=== PATIENT | female | born 1955 | race Caucasian/White ===

== ENCOUNTER 2018-05-13 11:51 | Inpatient (IN) | payer MEDICARE, BC ==
[~2018-05-13] VITALS: Ht 167.6 cm; Wt 86.4 kg
[~2018-05-13 11:51] MED LIST: BACITRACIN 50,000 UNIT ONE; BUPIVACAINE/PF-EPI 0.5% 1:200K ONE; THROMBIN 5,000 UNIT VIAL TP ONE
[2018-05-13] MEDS ORDERED: LACTATED RINGERS 1,000 ML IV SCH (12:29)
[2018-05-13] MEDS: GABAPENTIN 300 MG CAPSULE PO ONE ×2 (12:30→12:52)
[2018-05-13] MEDS ORDERED: OXYcodone IR 5MG TABLET PO ONE (12:30)
[2018-05-13] MEDS ORDERED: LIDOCAINE-MPF 1%, 2ML INFIL ONE (12:30)
[2018-05-13] MEDS ORDERED: ACETAMINOPHEN 500 MG TABLET PO ONE (12:30)
[2018-05-13] MEDS ORDERED: FENTANYL PF 250 MCG/5ML ONE (12:36)
[2018-05-13] MEDS ORDERED: synthroid PO (12:39)
[2018-05-13] MEDS ORDERED: vit d PO (12:39)
[2018-05-13] MEDS ORDERED: PRAV10TA2 PO (12:39)
[2018-05-13] MEDS ORDERED: LISI-167 PO (12:39)
[2018-05-13] MEDS ORDERED: METF1000 PO (12:39)
[2018-05-13] MEDS ORDERED: HYDR-3245 PO (12:39)
[2018-05-13] MEDS ORDERED: prempro PO (12:39)
[2018-05-13] MEDS ORDERED: DULO60CA7 PO (12:39)
[2018-05-13 12:53] VITALS: BP 155/70
[2018-05-13] MEDS ORDERED: FENTANYL PF 100 MCG/2ML IV PRN (14:00)
[2018-05-13] MEDS ORDERED: PROCHLORPERAZINE 5 MG/ML, 2ML IV PRN (14:00)
[2018-05-13] MEDS ORDERED: hydrALAzine 20 MG/ML, 1ML IV PRN (14:00)
[2018-05-13] MEDS ORDERED: PROMETHAZINE 25 MG/ML, 1ML IV PRN (14:00)
[2018-05-13] MEDS ORDERED: DIPHENHYDRAMINE 50 MG/ML, 1ML IVPush PRN (14:00)
[2018-05-13] MEDS ORDERED: LABETALOL 5MG/ML, 20ML IV PRN ×2 (14:00→17:00)
[2018-05-13] MEDS ORDERED: OXYcodone 5 MG/5 ML ORAL.SOL UDC PO PRN (14:00)
[2018-05-13] MEDS ORDERED: MEPERIDINE/PF 25MG/0.5ML IVPush PRN (14:00)
[2018-05-13] MEDS ORDERED: ONDANSETRON 2MG/ML, 2ML ONE (14:28)
[2018-05-13] MEDS ORDERED: NEOSTIGMINE 1 MG/ML, 10ML ONE (14:28)
[2018-05-13] MEDS ORDERED: SUCCINYLCHOLINE 20 MG/ML, 10ML ONE (14:28)
[2018-05-13] MEDS ORDERED: DEXAMETHASONE 4 MG/ML, 1ML ONE (14:28)
[2018-05-13] MEDS ORDERED: ROCURONIUM 10MG/ML,5ML ONE (14:28)
[2018-05-13] MEDS ORDERED: CEFAZOLIN 1,000 MG ONE (14:28)
[2018-05-13] MEDS ORDERED: GLYCOPYRROLATE 0.2MG/1ML, 5ML ONE (14:28)
[2018-05-13] MEDS ORDERED: PROPOFOL 10 MG/ML, 20ML ONE (14:28)
[2018-05-13] MEDS ORDERED: HYDROmorphone 2 MG/ML, 1ML ONE ×2 (14:44→15:47)
[2018-05-13] MEDS ORDERED: MEPERIDINE/PF 50 MG/ML ONE (14:44)
[2018-05-13] MEDS ORDERED: OXYcodone 5 MG/5 ML ORAL.SOL UDC ONE (14:45)
[2018-05-13] MEDS: HYDROmorphone 1 MG/ML, 1ML IV PRN ×6 (14:53→16:00)
[2018-05-13] MEDS ORDERED: PROMETHAZINE 25 MG/ML, 1ML ONE (14:59)
[2018-05-13] MEDS ORDERED: LORazepam 2 MG/ML, 1ML ONE (14:59)
[2018-05-13] MEDS ORDERED: LORazepam 2 MG/ML, 1ML IVPush PRN (15:30)
[2018-05-13] MEDS ORDERED: BISACODYL 10 MG SUPP PR PRN (17:00)
[2018-05-13] MEDS ORDERED: MAGNESIUM HYDROXIDE 8%, 30ML UDC PO PRN (17:00)
[2018-05-13] MEDS ORDERED: CYCLOBENZAPRINE 10 MG TABLET PO PRN (17:00)
[2018-05-13] MEDS ORDERED: HYDROcodone/APAP 5/325 TABLET PO PRN (17:00)
[2018-05-13] MEDS ORDERED: ONDANSETRON 2MG/ML, 2ML IV PRN (17:00)
[2018-05-13] MEDS ORDERED: HYDROmorphone 2MG TABLET PO PRN (17:00)
[2018-05-13] MEDS ORDERED: HYDROmorphone 2 MG/ML, 1ML IM PRN (17:00)
[2018-05-13] MEDS: metFORMIN 500 MG TABLET PO SCH ×2 (18:32→20:06)
[2018-05-13] MEDS: NS + 20MEQ KCL 1,000 ML IV SCH (18:32)
[2018-05-13 19:15] VITALS: BP 122/61
[2018-05-13] MEDS: HYDROcodone/APAP 10/325 MG TABLET PO PRN (20:04)
[2018-05-13] MEDS ORDERED: PRAVASTATIN 20 MG TABLET PO SCH (21:00)
[2018-05-13] MEDS: CEFAZOLIN PMX 1GM/50ML 50 ML IVPB SCH (21:58)
[2018-05-13] MEDS: INSULIN REGULAR 100 UNITS/ML, 3ML VIAL SQ-INSULIN SCH (22:47)
[2018-05-14 00:20] VITALS: BP 108/63
[2018-05-14] MEDS: HYDROcodone/APAP 10/325 MG TABLET PO PRN ×3 (00:21→08:47)
[2018-05-14 04:11] VITALS: BP 108/55
[2018-05-14] MEDS ORDERED: LEVOTHYROXINE 150 MCG TABLET PO SCH (06:00)
[2018-05-14] MEDS: CEFAZOLIN PMX 1GM/50ML 50 ML IVPB SCH (06:18)
[2018-05-14] MEDS: NS + 20MEQ KCL 1,000 ML IV SCH (06:20)
[2018-05-14] MEDS: INSULIN REGULAR 100 UNITS/ML, 3ML VIAL SQ-INSULIN SCH ×2 (07:00→10:56)
[2018-05-14 07:10] VITALS: BP 103/61
[2018-05-14] MEDS: metFORMIN 500 MG TABLET PO SCH (08:07)
[2018-05-14] MEDS ORDERED: HYDR-3307 PO (08:19)
[2018-05-14] MEDS ORDERED: CYCL-259 PO (08:19)
[2018-05-14] MEDS ORDERED: DULOXETINE 30 MG CAPSULE.DR PO SCH (09:00)
[2018-05-14] MEDS ORDERED: SENNA/DOCUSATE TABLET PO SCH (09:00)
[2018-05-14] MEDS ORDERED: LISINOPRIL 10 MG TABLET PO SCH (09:00)
== END 2018-05-14 13:04 | disposition home or self-care (01) | DRG 519 ==
LOC: OUT 11:51 → 4NOR 16:35 → OUT 16:37 → 4NOR 16:38 → DCLOUNGE 05-14 12:55
PROVIDERS: ADMIT Neurological Surgery; ATTEND Neurological Surgery
PROC: 0SB20ZZ Excision of Lumbar Vertebral Disc, Open Approach (ICD-10-PCS; 2018-05-13)
PROC: 01NB0ZZ Release Lumbar Nerve, Open Approach (ICD-10-PCS; principal; 2018-05-13 14:30)
DX: M48.07 Spinal stenosis, lumbosacral region (principal); E44.1 Mild protein-calorie malnutrition; M54.17 Radiculopathy, lumbosacral region; Z87.891 Personal history of nicotine dependence; I10 Essential (primary) hypertension; F41.9 Anxiety disorder, unspecified; E11.9 Type 2 diabetes mellitus without complications; E78.5 Hyperlipidemia, unspecified; E03.9 Hypothyroidism, unspecified
CPT/HCPCS: 72100; 82962; G0378; J0690; J1100; J1170; J1815; J2175; J2270; J2405; J2704; J2710; J3010; J3480; J3490; J0330; J2060; J7120